=== PATIENT | male | born 1985 | race Caucasian/White ===

== ENCOUNTER 2019-10-07 23:56 | Emergency (ER) | payer OTHER ==
[2019-10-08 00:02] VITALS: TEMP 97.8
[2019-10-08] MEDS ORDERED: HYDROcodone/APAP 5-325MG 1 EACH TAB PO STA (00:10)
[2019-10-08] MEDS ORDERED: LIDOCAINE/EPINEPHR/TETRACAINE 5 ML BOTTLE TOPICAL ONE (00:15)
[2019-10-08] MEDS ORDERED: LORazepam 2 MG/ML INJ IM STA (00:54)
--- NOTE | 2019-10-08 00:59 | XR ---
EXAMINATION TYPE: XR tibia fibula LT DATE OF EXAM: 10/08/2019 COMPARISON: NONE HISTORY: Laceration. Trauma. TECHNIQUE: 3 views FINDINGS: There are pins from previous ligament reconstructive surgery at the knee. I see no fracture nor dislocation. The ankle mortise is anatomic. IMPRESSION: No acute abnormality of the left tibia and fibula.
[2019-10-08] MEDS ORDERED: LIDOCAINE 1% INJ 10MG/ML (20 ML MDV) SQ STA (01:37)
[2019-10-08] MEDS ORDERED: DIPH,PERTUS(ACELL)TETVAC-LF 0.5 ML VIAL IM ONE (02:01)
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
[2019-10-08 02:46] VITALS: BP 125/81; PULSE 94; RESP 18
== END 2019-10-08 02:46 | disposition home or self-care (01) ==
LOC: EC 23:56
DX: S81.812A Laceration without foreign body, left lower leg, initial encounter (principal); F17.200 Nicotine dependence, unspecified, uncomplicated; Z88.0 Allergy status to penicillin; W01.198A Fall on same level from slipping, tripping and stumbling with subsequent striking against other object, initial encounter; Y93.89 Activity, other specified; Z23 Encounter for immunization
CPT/HCPCS: 73590; 90715; 99284; 90471; 96372; 12002; J2060; J2001